=== PATIENT | female | born 1980 | race Caucasian/White ===

== ENCOUNTER 2017-10-05 05:56 | Day surgery (SDC) | payer BC ==
[2017-10-02 12:47] VITALS: BMI 32.3
[2017-10-05] MEDS ORDERED: Gentamicin 80 MG/2 ML VIAL ONE (06:40)
[2017-10-05] MEDS ORDERED: Bupivacaine/Epinephrine 0.25% 30 ML VIAL ONE (06:40)
[2017-10-05] MEDS ORDERED: Sodium Chloride 0.9% 0 ML ONE (06:40)
[2017-10-05] MEDS ORDERED: Lidocaine 1% (PF) 30 ML VIAL ONE (06:40)
[2017-10-05] MEDS ORDERED: Heparin 5,000 UNITS/ML VIAL ONE (06:47)
[2017-10-05] MEDS ORDERED: Clindamycin/D5W 900 mg/50 ml Premix Bag ONE (06:48)
[2017-10-05] MEDS ORDERED: Levofloxacin 500 mg/D5W 100 ml Premix Bag ONE (06:48)
[2017-10-05] MEDS ORDERED: EPINEPHrine 1 MG/ML AMP ONE (06:54)
[2017-10-05] MEDS ORDERED: Midazolam HCl 2 mg/2 ml Vial ONE (06:55)
[2017-10-05] MEDS ORDERED: Fentanyl 250 MCG/5 ML VIAL ONE (06:57)
--- NOTE | 2017-10-05 11:52 | OP ---
PREOPERATIVE DIAGNOSIS: Macromastia. POSTOPERATIVE DIAGNOSIS: Macromastia. PROCEDURE: Bilateral breast reduction. PROCEDURE IN DETAIL: Following induction of adequate anesthesia, the patient was prepped and draped in the usual sterile fashion in the supine position. The nipple was circumcised around a 42-mm nippl e sizer. The skin over the inferior pole of the breast was de-epithelialized. Skin flaps were then raised in a Lawrence pattern superiorly, medially, and laterally. Dermoglandular units were then resecte d superiorly, medially, and laterally, taking care to protect the pedicle's viability and sensibility . The field was copiously irrigated and inspected for meticulous hemostasis prior to closure of the inverted T with 3-0 PDS suture and 4-0 Monocryl suture, bringing out the nipple through a 42-mm nippl e defect. Drain was placed prior to closure. A similar procedure was done on each side.
[2017-10-05] MEDS ORDERED: Fentanyl 100 MCG/2 ML VIAL ONE (12:09)
[2017-10-05] MEDS ORDERED: HYDROcodone/Acetaminophen 5/325 mg Tablet ONE ×2 (14:33→14:34)
== END 2017-10-05 16:10 | disposition home or self-care (01) ==
LOC: SDC 05:56
PROVIDERS: ATTEND Plastic Surgery
PROC: 0H0V0ZZ Alteration of Bilateral Breast, Open Approach (ICD-10-PCS; principal; 2017-10-05)
DX: N62 Hypertrophy of breast (principal); Z88.0 Allergy status to penicillin
CPT/HCPCS: 88305; 93005; 93010; 96374; A4216; J0171; J1580; J1644; J1956; J2001; J2250; J3010; J3370; J3490

== ENCOUNTER 2018-02-22 10:38 | Day surgery (SDC) | payer BC, MEDICAID ==
[2018-02-19 13:00] VITALS: BMI 33.6
[2018-02-22] MEDS ORDERED: Bupivacaine/Epinephrine 0.25% 30 ML VIAL ONE (11:25)
[2018-02-22] MEDS ORDERED: Bacitracin Zinc Ointment 30 gm TUBE ONE (11:25)
[2018-02-22] MEDS ORDERED: Ophthalmic Irrigation Solution 0 ML ONE (11:25)
[2018-02-22] MEDS ORDERED: CEFAZOLIN 2 GM/50 ML BAG ONE (11:35)
[2018-02-22] MEDS ORDERED: Fentanyl 100 MCG/2 ML VIAL ONE ×4 (11:36→13:45)
[2018-02-22] MEDS ORDERED: Heparin 5,000 UNITS/ML VIAL ONE (11:36)
[2018-02-22 11:37] LABS: Hemoglobin 13.9 g/dL (12.0-16.0); Mean Corpuscular Hemoglobin 29.9 pg (27.0-31.0); Mean Corpuscular Volume 93.5 fL (78.0-98.0); Mean Platelet Volume 7.1 fL (7.4-10.4); Platelet Count 319 thou/uL (130-400); RBC Distribution Width 11.8 % (11.5-14.5); Red Blood Cell (RBC) Count 4.64 mill/uL (4.20-5.40); White Blood Cell (WBC) Count 11.8 thou/uL (4.8-10.8)
[2018-02-22 11:41] LABS: BHCG - Serum Negative (NEGATIVE); Pregs Control Background? CLEAR/WHITE (CLR/WHITE); Pregs Control Bar Appear? YES (CONTROL BAR)
[2018-02-22] MEDS ORDERED: Midazolam HCl 2 mg/2 ml Vial ONE (11:47)
[2018-02-22 11:49] LABS: Anion Gap 14 mmol/L (10-20); BUN (Urea Nitrogen) 15 mg/dL (7.0-18.7); Calc. Creatinine Clearance 155 mL/min (70-130); Calcium 9.7 mg/dL (7.8-10.44); Carbon Dioxide 25 mmol/L (22-29); Chloride 104 mmol/L (98-107); Estimated GFR-MDRD 85; Glucose 81 mg/dL (70-105); Potassium 4.1 mmol/L (3.5-5.1); Sodium 139 mmol/L (136-145)
[2018-02-22] MEDS ORDERED: Dexamethasone 20 MG/5 ML VIAL ONE (14:33)
[2018-02-22] MEDS ORDERED: Lidocaine 1% PF 5 ML VIAL ONE (14:33)
[2018-02-22] MEDS ORDERED: PROPOFOL 200 MG/20 ML VIAL ONE (14:33)
[2018-02-22] MEDS ORDERED: Ondansetron PF 4 MG/2 ML Vial ONE (14:33)
[2018-02-22] MEDS ORDERED: HYDROcodone/Acetaminophen 5/325 mg Tablet ONE ×2 (14:43→14:44)
--- NOTE | 2018-02-23 15:30 | OP ---
DATE OF PROCEDURE: 03/01/2018 PREOPERATIVE DIAGNOSIS: Open wound, right breast. POSTOPERATIVE DIAGNOSIS: Open wound, right breast. INDICATIONS FOR PROCEDURE: The patient is a 37-year-old female, a couple of months status post breas t reduction. She had postoperative wound healing difficulties. This resulted in a very slowly heali ng sinus tract at the 11 o'clock position on her nipple. After conservative therapy had failed to re sult in a significant improvement, we elected for debridement. PROCEDURE: Debridement of right breast for skin and subcutaneous tissue. DESCRIPTION OF PROCEDURE: Following induction of adequate anesthesia, the patient was prepped and dr aped in the usual sterile fashion in supine position. The areola from the 12 o'clock to 9 o'clock to 6 o'clock position as well as the lateral half of the right jett pattern closure was opened. A Q-ti p was placed in the sinus tract. A column of tissue of fat necrosis with a very thin rim of normal t issue was excised all the way down to and including the base. This removed all the fat necrosis from the wound. The field was copiously irrigated and inspected for meticulous hemostasis prior to place ment of the drain and closure with 3-0 PDS suture and 3-0 Monocryl suture. The patient tolerated the procedure well.
--- NOTE | 2018-03-03 06:55 | PQF ---
[facility] POST DISCHARGE CLINICAL DOCUMENTATION IMPROVEMENT CLARIFICATION FORM l Todays Date: 03/03/18 l Patients Name VIOLETA BERRIOS l l Admit Date 02/22/18 l Disch Date 02/22/18 Molding Supervisor Name Ilia Noble Email: [email or web address]: [phone] To be completed by Molding Supervisor: Present Clinical Indicators - Signs / Symptoms Results and Location in Medical Record [ ] Documentation of: [ ] [ ] Documentation of: [ ] [ ] Documentation of: [ ] [ ] Documentation of: [ ] [ ] Risks [ ] [ ] [ ] Treatment [ ] RIGHT BREAST OPEN WOUND QUERY FOR SIZE OF DEBRIDEMENT AREA [ ] [ ] To be completed by Physician: JUAQUIN GARG The documentation in this patients record requires clarification to ensure coding compliance and accuracy. Check the appropriate box and include in your discharge summary. [ X] ___The part debrided was a 3D column of tissue 3cm in diameter and 5cm in legnth involving skin and subq tissue [ ] [ ] [ ] Please check this box if this does not apply to this patient [ ] Unable to determine [ ] Other diagnosis: Review the following information and exercise your independent professional judgment in responding to the clarification. Based upon the clinical findings, risk factors, and treatment, please clarify if you are treating one of the above probable or suspected diagnoses. Physician Signature: Date Time MTDD
== END 2018-02-22 15:26 | disposition home or self-care (01) ==
LOC: SDC 10:38
PROVIDERS: ATTEND Plastic Surgery
PROC: 0HBT0ZZ Excision of Right Breast, Open Approach (ICD-10-PCS; principal; 2018-02-22)
DX: N61.0 Mastitis without abscess (principal); N60.81 Other benign mammary dysplasias of right breast; Z79.899 Other long term (current) drug therapy; Z88.0 Allergy status to penicillin; Z88.1 Allergy status to other antibiotic agents
CPT/HCPCS: 36415; 80048; 84703; 85027; 88305; 96374; J1100; J1644; J2001; J2250; J2405; J2704; J3010